=== PATIENT | male | born 1980 | race African-American/Black ===

== ENCOUNTER 2017-04-12 00:25 | Emergency (ER) | payer MEDICAID ==
[~2017-04-12] VITALS: Ht 180.3 cm; Wt 60.0 kg
[2017-04-12] MEDS ORDERED: KETOROLAC 30MG/ML VIAL IM ONE (03:00)
[2017-04-12] MEDS ORDERED: ONDANSETRON 4MG ODT PO ONE (03:00)
[2017-04-12 03:32] LABS: BASOPHILS % 0.4 % (0.0-2.0); EOSINOPHILS % 0.2 % (0.0-5.0); HEMATOCRIT. 39.9 % (42.0-52.0); HEMOGLOBIN. 12.9 g/dL (14.0-18.0); LYMPHOCYTES % 11.6 % (20.0-50.0); MEAN CORPUSCULAR HEMOGLOBIN 27.4 pg (28.0-32.0); MEAN CORPUSCULAR VOLUME 84.5 fL (80.0-94.0); MEAN PLATELET VOLUME 8.9 fl (7.4-10.4); MONOCYTES % 6.3 % (2.0-8.0); NEUTROPHILS % 81.5 % (40.0-76.0); PLATELET 181 x1000/uL (130-400); RED BLOOD CELL COUNT 4.72 mill/uL (4.7-6.1); RED CELL DISTRIBUTION WIDTH 13.7 % (11.6-14.6)
[2017-04-12 03:38] LABS: CARBON DIOXIDE 29 mEq/L (21-32); CHLORIDE 106 mEq/L (98-107)
[2017-04-12 03:49] LABS: INR 1.2
[2017-04-12 08:35] VITALS: BP 108/67
== END 2017-04-12 08:37 | disposition short-term general hospital (02) ==
LOC: ER 00:25
DX: S02.40DA Maxillary fracture, left side, initial encounter for closed fracture (principal); S02.82XA Fracture of other specified skull and facial bones, left side, initial encounter for closed fracture; R10.2 Pelvic and perineal pain; F17.200 Nicotine dependence, unspecified, uncomplicated; F12.10 Cannabis abuse, uncomplicated; Z88.0 Allergy status to penicillin; Y08.89XA Assault by other specified means, initial encounter; Y93.89 Activity, other specified; Y92.89 Other specified places as the place of occurrence of the external cause; Y99.8 Other external cause status
CPT/HCPCS: 36415; 70450; 70486; 71010; 72170; 80053; 83690; 85025; 85610; 93005; 96372; 99285; J1885; Q0162; Z7610

== ENCOUNTER 2019-02-16 20:01 | Inpatient (IN) | payer MEDICAID ==
[~2019-02-16] VITALS: Ht 180.3 cm; Wt 64.9 kg
[2019-02-16 22:08] LABS: BASOPHILS % 0.5 % (0.0-2.0); EOSINOPHILS % 0.8 % (0.0-5.0); LYMPHOCYTES % 21.3 % (20.0-50.0); MEAN CORPUSCULAR HEMOGLOBIN 29.5 pg (28.0-32.0); MEAN CORPUSCULAR VOLUME 88.3 fL (80.0-94.0); MEAN PLATELET VOLUME 9.5 fl (7.4-10.4); MONOCYTES % 6.8 % (2.0-8.0); NEUTROPHILS % 70.6 % (40.0-76.0); PLATELET 283 x1000/uL (130-400); RED BLOOD CELL COUNT 5.44 mill/uL (4.7-6.1); RED CELL DISTRIBUTION WIDTH 13.5 % (11.6-14.6)
[2019-02-16 22:12] LABS: CHLORIDE 98 mEq/L (98-107)
[2019-02-16] MEDS ORDERED: DIATR MEGLU/DIATRIZOATE SOLN 30ML ONE (22:19)
[2019-02-16 22:24] LABS: INR 1.2; PROTHROMBIN TIME 11.8 sec (9.6-11.0)
[2019-02-16] MEDS ORDERED: ONDANSETRON HCL 4MG/2ML INJ IV ONE (22:30)
[2019-02-16] MEDS ORDERED: MORPHINE SULFATE 4 MG/ML CPJ (NOT FOR IM USE) IV ONE ×2 (22:30)
[2019-02-17] MEDS ORDERED: MORPHINE SULFATE 4 MG/ML CPJ (NOT FOR IM USE) IV ONE (01:30)
[2019-02-17] MEDS ORDERED: ONDANSETRON HCL 4MG/2ML INJ IV ONE (01:45)
[2019-02-17 02:06] LABS: INR 1.3; PROTHROMBIN TIME 12.7 sec (9.6-11.0)
[2019-02-17] MEDS ORDERED: METRONIDAZOLE 500 MG PREMIX 100 ML IV ONE (03:00)
[2019-02-17] MEDS ORDERED: LEVOFLOXACIN 500MG PREMIX 100 ML IV ONE (03:00)
[2019-02-17 05:00] VITALS: BP 134/95
[2019-02-17 07:30] VITALS: BP 110/68
[2019-02-17 08:00] VITALS: BP 118/82
[2019-02-17] MEDS ORDERED: GUAIFENESIN 200MG/10ML SUGAR FREE UDC PO PRN (08:00)
[2019-02-17] MEDS ORDERED: HYDROCODONE/ACETAMINOPHEN 5/325MG TABLET PO PRN (08:00)
[2019-02-17] MEDS ORDERED: MAGNESIUM/ALUMINUM HYDROXIDE/SIMETHICONE 30ML UDC PO PRN (08:00)
[2019-02-17] MEDS ORDERED: LORAZEPAM 2MG/ML CPJ IV PRN (08:00)
[2019-02-17] MEDS ORDERED: CLONIDINE 0.1MG TABLET PO PRN (08:00)
[2019-02-17] MEDS ORDERED: IPRATROPIUM/ALBUTEROL 0.5-3(2.5)MG/3ML NEB NEB PRN (08:00)
[2019-02-17] MEDS ORDERED: NA PHOS,M-B/NA PHOS,DI-BA ENEMA 118ML PR PRN (08:00)
[2019-02-17] MEDS ORDERED: ACETAMINOPHEN 325MG TABLET PO PRN (08:00)
[2019-02-17] MEDS ORDERED: DIPHENHYDRAMINE 50MG/ML VIAL IV PRN (08:00)
[2019-02-17] MEDS ORDERED: DOCUSATE SODIUM 100MG CAPSULE PO PRN (08:00)
[2019-02-17] MEDS: MORPHINE SULFATE 2 MG/ML CPJ (NOT FOR IM USE) IV PRN ×3 (09:01→20:25)
[2019-02-17 09:29] LABS: CHLORIDE 100 mEq/L (98-107)
[2019-02-17] MEDS: SODIUM CHLORIDE 0.45% 1,000 ML IV SCH ×2 (10:26→21:50)
[2019-02-17] MEDS: ENOXAPARIN 40MG/0.4ML SYR SUBCUT SCH (10:27)
[2019-02-17] MEDS: ONDANSETRON HCL 4MG/2ML INJ IV PRN ×3 (10:35→23:03)
[2019-02-17 12:00] VITALS: BP 107/74
[2019-02-17] MEDS ORDERED: POTASSIUM CHLORIDE 20MEQ TABLET SR PO SCH (14:00)
[2019-02-17] MEDS: METRONIDAZOLE 500 MG PREMIX 100 ML IV SCH ×2 (14:05→23:04)
[2019-02-17 16:00] VITALS: BP 122/83
[2019-02-18] MEDS: MORPHINE SULFATE 2 MG/ML CPJ (NOT FOR IM USE) IV PRN ×3 (01:05→10:20)
[2019-02-18] MEDS: METRONIDAZOLE 500 MG PREMIX 100 ML IV SCH ×2 (05:47→13:39)
[2019-02-18] MEDS ORDERED: LEVOFLOXACIN 500MG PREMIX 100 ML IV SCH (06:00)
[2019-02-18 06:51] LABS: BASOPHILS % 0.4 % (0.0-2.0); EOSINOPHILS % 1.8 % (0.0-5.0); HEMATOCRIT. 45.1 % (42.0-52.0); HEMOGLOBIN. 14.9 g/dL (14.0-18.0); LYMPHOCYTES % 20.2 % (20.0-50.0); MEAN CORPUSCULAR HEMOGLOBIN 29.1 pg (28.0-32.0); MEAN CORPUSCULAR VOLUME 87.7 fL (80.0-94.0); MEAN PLATELET VOLUME 9.8 fl (7.4-10.4); MONOCYTES % 7.7 % (2.0-8.0); NEUTROPHILS % 69.9 % (40.0-76.0); PLATELET 247 x1000/uL (130-400); RED BLOOD CELL COUNT 5.14 mill/uL (4.7-6.1); RED CELL DISTRIBUTION WIDTH 13.1 % (11.6-14.6)
[2019-02-18 07:36] LABS: CHLORIDE 98 mEq/L (98-107)
[2019-02-18 07:46] LABS: LDL CHOLESTEROL 97 mg/dL (5-100)
[2019-02-18 07:47] LABS: HDL CHOLESTEROL 38 mg/dL (40-59)
[2019-02-18 07:50] LABS: T4 FREE 1.23 ng/dL (0.76-1.46)
[2019-02-18 08:00] VITALS: BP 118/72
[2019-02-18] MEDS: ENOXAPARIN 40MG/0.4ML SYR SUBCUT SCH (10:18)
[2019-02-18] MEDS: SODIUM CHLORIDE 0.45% 1,000 ML IV SCH (10:19)
[2019-02-18 11:57] VITALS: BP 124/71
[2019-02-18 12:00] VITALS: BP 124/69
== END 2019-02-18 16:04 | disposition home or self-care (01) | DRG 241 ==
LOC: ER 20:01 → 6EST 02-17 02:46 → ENRESERV 02-17 03:19
PROVIDERS: ADMIT Internal Medicine; ATTEND Internal Medicine
DX: K29.70 Gastritis, unspecified, without bleeding (principal); E86.0 Dehydration; K29.80 Duodenitis without bleeding; Z88.0 Allergy status to penicillin
CPT/HCPCS: 36415; 74176; 80048; 80061; 84439; 84443; 86850; 86900; 96374; 99285; J1650; J1956; J2270; J2405; J3490; Q9963